=== PATIENT | female | born 1975 | race African-American/Black ===

== ENCOUNTER 2020-03-07 13:04 | Outpatient (CLI) | payer OTHER, SELFPAY ==
--- NOTE | ~2020-03-07 | MM_ITS ---
EXAMINATION: MM screening megha BI w syed HISTORY: Screening mammogram TECHNIQUE: Craniocaudal and mediolateral oblique 3-D tomosynthesis images were obtained and synthetic 2-D images were generated. CAD analysis was submitted and interpreted. COMPARISON: 12/08/2018 bilateral digital screening mammogram BREAST PARENCHYMAL COMPOSITION: The breasts are extremely dense, which lowers the sensitivity of mamm ography. FINDINGS: There is no evidence of suspicious mass, calcification, or architectural distortion to sugg est malignancy in either breast. There has been no suspicious interval change. IMPRESSION: 1. No mammographic evidence of malignancy. 2. Recommend routine screening mammography in one year. BI-RADS Category 1: Negative Reviewed, dictated and finalized at location A.
== END 2020-03-07 13:05 | disposition home or self-care (01) ==
LOC: ANHIMG 13:10
PROVIDERS: PCP Obstetrics & Gynecology; Visit Provider Obstetrics & Gynecology
DX: Z12.31 Encounter for screening mammogram for malignant neoplasm of breast (principal)
CPT/HCPCS: 77063; 77067

== ENCOUNTER 2021-03-28 15:34 | Outpatient (CLI) | payer OTHER, SELFPAY ==
--- NOTE | ~2021-03-28 | MM_ITS ---
EXAMINATION: MM screening megha BI w syed HISTORY: Screening mammogram TECHNIQUE: Craniocaudal and mediolateral oblique 3-D tomosynthesis images were obtained and synthetic 2-D images were generated. CAD analysis was submitted and interpreted. COMPARISON: 03/07/2020, 12/08/2018 bilateral digital screening mammogram examinations BREAST PARENCHYMAL COMPOSITION: The breasts are extremely dense, which lowers the sensitivity of mamm ography. FINDINGS: There is no evidence of suspicious mass, calcification, or architectural distortion to sugg est malignancy in either breast. There has been no suspicious interval change. IMPRESSION: 1. No mammographic evidence of malignancy. 2. Recommend routine screening mammography in one year. BI-RADS Category 1: Negative Reviewed, dictated and finalized at location A.
== END 2021-03-28 15:35 | disposition home or self-care (01) ==
LOC: ANHIMG 15:37
PROVIDERS: PCP Obstetrics & Gynecology; Visit Provider Internal Medicine
DX: Z12.31 Encounter for screening mammogram for malignant neoplasm of breast (principal)
CPT/HCPCS: 77063; 77067

== ENCOUNTER 2022-05-05 15:34 | Outpatient (CLI) | payer OTHER, SELFPAY ==
--- NOTE | ~2022-05-05 | MM_ITS ---
EXAMINATION: MM screening megha BI w syed HISTORY: Screening TECHNIQUE: Craniocaudal and mediolateral oblique 3-D tomosynthesis images were obtained and synthetic 2-D images were generated. CAD analysis was submitted and interpreted. COMPARISON: Comparison to multiple prior studies sequentially, with oldest reviewed study dated 12/08. BREAST PARENCHYMAL COMPOSITION: The breasts are extremely dense, which lowers the sensitivity of mamm ography. FINDINGS: There is no evidence of suspicious mass, calcification, or architectural distortion to sugg est malignancy in either breast. There has been no suspicious interval change. IMPRESSION: 1. No mammographic evidence of malignancy. 2. Recommend routine screening mammography in one year. BI-RADS Category 1: Negative Reviewed, dictated and finalized at location A.
== END 2022-05-05 15:35 | disposition home or self-care (01) ==
LOC: ANHIMG 15:36
PROVIDERS: PCP Obstetrics & Gynecology; Visit Provider Obstetrics & Gynecology
DX: Z12.31 Encounter for screening mammogram for malignant neoplasm of breast (principal)
CPT/HCPCS: 77063; 77067

== ENCOUNTER 2023-09-21 15:32 | Outpatient (CLI) | payer OTHER, SELFPAY ==
--- NOTE | ~2023-09-21 | MM_ITS ---
EXAMINATION: MM screening megha BI w syed HISTORY: Screening mammogram, family history of breast cancer in her mother. TECHNIQUE: Craniocaudal and mediolateral oblique 3-D tomosynthesis images were obtained and synthetic 2-D images were generated. CAD analysis was submitted and interpreted. COMPARISON: 05/05/2022, 03/28/2021, 03/07/2020 BREAST PARENCHYMAL COMPOSITION:The breasts are extremely dense, which lowers the sensitivity of mammo graphy. FINDINGS: No suspicious mass, calcification, or architectural distortion are identified in either sherrie ast to suggest malignancy. There has been no suspicious interval change. IMPRESSION: No mammographic evidence of malignancy. Recommend routine screening mammography in one year. BI-RADS Category 1: Negative Reviewed, dictated and finalized at location . 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
== END 2023-09-21 15:33 | disposition home or self-care (01) ==
LOC: ANHIMG 15:36
PROVIDERS: PCP Obstetrics & Gynecology; Visit Provider Obstetrics & Gynecology
DX: Z12.31 Encounter for screening mammogram for malignant neoplasm of breast (principal)
CPT/HCPCS: 77063; 77067

== ENCOUNTER 2024-09-23 11:43 | Outpatient (CLI) | payer OTHER, SELFPAY ==
--- NOTE | ~2024-09-23 | MM_ITS ---
EXAMINATION: MM screening megha BI w syed HISTORY: Screening TECHNIQUE: Craniocaudal and mediolateral oblique 3-D tomosynthesis images were obtained and synthetic 2-D images were generated. CAD analysis was submitted and interpreted. COMPARISON: Comparison to multiple prior studies sequentially, with oldest reviewed study dated 12/08. BREAST PARENCHYMAL COMPOSITION: Dense: The breasts are extremely dense, which lowers the sensitivity of mammography. FINDINGS: There is no evidence of suspicious mass, calcification, or architectural distortion to sugg est malignancy in either breast. There has been no suspicious interval change. IMPRESSION: 1. No mammographic evidence of malignancy. 2. Recommend routine screening mammography in one year. BI-RADS Category 1: Negative Reviewed, dictated and finalized at location B. 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
== END 2024-09-23 11:44 | disposition home or self-care (01) ==
LOC: CHSIMG 11:44
PROVIDERS: PCP Obstetrics & Gynecology; Visit Provider Obstetrics & Gynecology
DX: Z12.31 Encounter for screening mammogram for malignant neoplasm of breast (principal)
CPT/HCPCS: 77063; 77067

== ENCOUNTER 2025-08-14 11:13 | Outpatient (CLI) | payer OTHER, SELFPAY ==
--- NOTE | ~2025-08-14 | MMUS_ITS ---
EXAMINATION: MM diagnostic megha BI w syed, US breast LT limited HISTORY: Palpable left breast abnormality TECHNIQUE: Additional 3-D tomosynthesis images of the breasts were performed and synthetic 2-D images were generated. CAD analysis was submitted and interpreted. High resolution Limited left breast ultrasound was performed. COMPARISON: Comparison to multiple prior studies sequentially, with oldest reviewed study dated 12/08/2018. BREAST PARENCHYMAL COMPOSITION: Dense: The breasts are extremely dense, which lowers the sensitivity of mammography. FINDINGS: MAMMOGRAPHIC FINDINGS: There are no suspicious masses, calcifications or architectural distortion in either breast to suggest malignancy. ULTRASOUND: Limited left breast ultrasound: At 11:00, 2 cm from the nipple an area of palpable concern there is a bilobed circumscribed parallel oriented hypoechoic mass without posterior features or internal vascularity measuring 11 x 8 x 4 mm, likely benign. At 12:00, 2 cm from the nipple there is a 9 mm cyst. IMPRESSION: 1. Probable benign sonographic mass in the left breast at 11:00, 2 cm from the nipple measuring 11 mm. 2. Recommend 6 month follow-up Limited left breast ultrasound recommended. BI-RADS category 3, probably benign findings. Reviewed, dictated and finalized at location B. IMPRESSION: 1. Probable benign sonographic mass in the left breast at 11:00, 2 cm from the nipple measuring 11 mm. 2. Recommend 6 month follow-up Limited left breast ultrasound recommended. BI-RADS category 3, probably benign findings.
--- OUTSIDE RECORDS SUMMARY | 2025-08-14 12:46 | XMS_ITS | Clinical Summary ---
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 Gender Identity Not on file Sexual Orientation Not on file Plan of Treatment Health Maintenance Due Date Last Done Comments Hepatitis C Virus (HCV) Screening 1977 TdaP Immunization 1977 Hepatitis B Immunization (1 of 3 - 19+ 3-dose series) 1996 Pap Smear 1998 Cervical Cancer Screening (CCS) 2007 HPV/Cotest 2007 Cologuard 2022 Colonoscopy 2022 Colorectal Cancer Screening 2022 Immunochemical Fecal Occult Blood 2022 Influenza Immunization (#1) 06/19/202507/20, 08/09/2019 SARS-COV-2 Immunization ( season) 2025 09/10/2021, 12/10/2020, 11/13/2020 Respiratory Syncytial Virus (RSV) Immunization (Adult) (1 - 1-dose 75+ series) 2052 Human Papillomavirus (HPV) Immunization Aged Out No longer eligible b ased on patient's age to complete this topic Meningococcal Immunization (ACWY) Aged Out No longer eligible b ased on patient's age to complete this topic Pneumococcal Immunization Combined Aged Out No longer eligible b ased on patient's age to complete this topic Rotavirus Immunization Aged Out No lo nger eligible based on patient's age to complete this topic Insurance on file
--- OUTSIDE RECORDS SUMMARY | 2025-08-14 12:46 | XMS_ITS | Clinical Summary ---
Author Organization [facility] Address [address] [place] [address] Care Team Providers Care Flight Communications Officer Name Role Phone Yoana Amos MD Primary Care Provider [phone] Allergies No known active allergies Social History Tobacco Use Types Packs/Day Years Used Date Smoking Tobacco: Never Smokeless Tobacco: Never Alcohol Use Standard Drinks/Week Comments No 0 (1 standard drink = 0.6 oz pur e alcohol) AUDIT-C Answer Date Recorded Frequency of Alcohol Consumption Never 05/22/2019 Average Number of Drinks Not on file 019 Frequency of Binge Drinking Not on file 01/2019 Comments No Sex and Gender Information Value Date Recorded Sex Assigned at Not on file Legal Sex Female 8:44 AM CDT Gender Identity Not on file Sexual Orientation Not on file Last Filed Vital Signs Vital Sign Reading Time Taken Comments Blood Pressure 133/100 05/22/2019 12:00 PM CDT Pulse 71 05/22/2019 12:00 PM CDT Temperature 36.6 C (97.8 F) 05/22/2019 11:30 AM CDT Respiratory Rate 14 05/22/2019 12:00 PM CDT Oxygen Saturation 99% 05/22/2019 11:30 AM CDT Inhaled Oxygen Concentration - - Weight 70.3 kg (155 lb) 05/22/2019 8:48 AM CDT Height 170.2 cm (5' 7) 05/22/2019 8:48 AM CDT Body Mass Index 24.28 05/22/2019 8:48 AM CDT Plan of Treatment Health Maintenance Due Date Last Done Comments Cervical Cancer Screening Pa p Smear (Age 30 to 64) Every 3 Years 1977 Colorectal Cancer Screening Colonoscopy (10 Years) 1977 Annual Physical 1980 Hepatitis C 1995 DTaP, Tdap and Td Vaccines ( 1 - Tdap) 1996 Hepatitis B Vaccines (1 of 3 - 19+ 3-dose series) 1996 Cervical Cancer Screening Pa p with HPV Testing (Age 30 to 64) Every 5 Years 2007 Cervical Cancer Screening with HPV 2007 Mammogram Screening 2017 COVID-19 Vaccine ( - 2024-2 6 season) 2025 Influenza Adult (#1) 2025 Hepatitis A Vaccines Aged Out No long er eligible based on patient's age to complete this topic Meningococcal B Vaccine Aged Out No l onger eligible based on patient's age to complete this topic Meningococcal Vaccine Aged Out No ankita solomon eligible based on patient's age to complete this topic Pneumococcal Vaccine: Pediat rics (0 to 5 Years) and At-Risk Patients (6 to 49 Years) Aged Out No longer eligible b ased on patient's age to complete this topic RSV Immunizations Under 20 Months Aged Out No longer eligible based on patient's age to complete this topic Insurance Care Teams Flight Communications Officer Relationship Specialty Start Date End Date Yoana Amos MD [address] [facility] [address] [id number] PCP - General INTERNAL MEDICINE 8/4/19
--- OUTSIDE RECORDS SUMMARY | 2025-08-14 12:46 | XMS_ITS | Clinical Summary ---
Author Organization [facility] [address] Address [address] [facility] 3rd [place] [address] Phone Care Team Providers Care Adding Machine Mechanic Name Role Phone Yoana Amos MD Primary Care Provider [phone] Allergies No known active allergies Social History Tobacco Use Types Packs/Day Years Used Date Smoking Tobacco: Never Assessed Smokeless Tobacco: Never Alcohol Use Standard Drinks/Week Comments No 0 (1 standard drink = 0.6 oz pur e alcohol) Comments Yes Sex and Gender Information Value Date Recorded Sex Assigned at Not on file 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 Gender Identity Not on file Sexual Orientation Not on file Occupation Industry Job Start Date Job End Date Not on file Not on file Not on file Not on file Plan of Treatment Health Maintenance Due Date Last Done Comments DTAP/TDAP/TD VACCINES (1 - Tdap) 1996 HEPATITIS B VACCINES (1 of 3 - 19+ 3-dose series) 03/1996 HPV/Cotest (21-29) 1998 CERVICAL CANCER SCREENING 2007 HPV/Cotest (30-65) 2007 PAP SMEAR 2007 BREAST CANCER SCREENING 2017 COLORECTAL SCREENING 2022 Colorectal Cancer Screening 2022 FIT-DNA Q 3 years 2022 FIT/FOBT Q 1 year 2022 Flex Sig/CT Colonography Q 5 years 2022 INFLUENZA VACCINE (#1) 2025 RSV VACCINE (60+ or ) (1 - 1-dose 75+ series) 2052 Insurance [employer] [facility] OPEN ACCESS Care Teams Adding Machine Mechanic Relationship Specialty Start Date End Date Yoana Amos MD [address] [facility] [address] [place] [address] [place] [phone] PCP - General Internal Medicine 01/07/12
--- OUTSIDE RECORDS SUMMARY | 2025-08-14 12:46 | XMS_ITS | Encounter Summary ---
Author Organization [facility] Care Team Providers Care Open Hearth Stockyard Supervisor Name Role Phone Yoana Amos MD Primary Care Provider [phone] Yoana Amos MD Primary Care Provider [phone] Yoana Amos MD Unavailable [phone] Santiago Moe MD Unavailable [phone] Rao Booth MD Unavailable [phone] Lyudmila Crowder MD Unavailable [phone] Zack Hebert OD Unavailable [phone] Encounter Details Date Type Department Care Team (Latest Contact Info) Description 08/10/2018 Orders Only [facility] CLINCONV ProviderJose Manuel MD [address] [place] [id number] Social History Tobacco Use Types Packs/Day Years Used Date Smoking Tobacco: Never Comments Unknown Sex and Gender Information Value Date Recorded Sex Assigned at Not on file 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 us Historical Provider Final Res ult documented in this encounter Visit Diagnoses Not on filedocumented in this encounter Care Teams Open Hearth Stockyard Supervisor Relationship Specialty Start Date End Date Yoana Amos MD [facility] [id number] PCP - General 04/23/19 11/27/19 Yoana Amos MD [facility] [address] [id number] PCP - General Internal Medicine 11/28/19 Yoana Amos MD [facility] [address] [id number] 11/28/19 Santiago Moe MD [address] [place] [id number] Referring Physician Obstetrics and Gynecology 05/11/19 Rao Booth MD [address] [address] Consulting Physician Colon and Rectal Surgery 10/08/20 Lyudmila Crowder MD [address] [place] [id number] Referring Physician Cardiology 11/19/21 Zack Hebert OD [address] [facility] [facility] [address] [place] [address] Optometry 12/26/21 documented as of this encounter
--- OUTSIDE RECORDS SUMMARY | 2025-08-14 12:46 | XMS_ITS | Clinical Summary ---
Author Organization [facility] Address [address] [place] [address] Care Team Providers Care Aperture Mask Etcher Name Role Phone Yoana Amos MD Primary Care Provider Yoana Amos MD Unavailable Santiago Moe MD Unavailable [phone] Rao Booth MD Unavailable [phone] Lyudmila Crowder MD Unavailable Zack Hebert OD Unavailable [phone] Allergies Active Allergy Reactions Criticality Noted Date Comments Nifedipine Headache Low 05/10/2019 Medications fluticasone propionate (FLONASE) 50 mcg/actuation nasal spray Administer 2 sprays into each nostril daily 16 g 5 2 Active Additional Information Patient not taking.Reported on 08/08/2025 metoprolol XL (TOPROL-XL) 50 mg extended release tablet TAKE 1 TABLET BY MOUTH EVERY DAY 30 tablet 5 5 Active lisinopriL (PRINIVIL,ZEST RIL) 20 mg tabletIndicati ons:Hypertensi on, essential TAKE 1 TABLET BY MOUTH EVERY DAY. DUE FOR ANNUAL VISIT!! 30 tablet 3 5 Active hydroCHLOROthi azide 12.5 mg tabletIndicati ons:Hypertensi on, essential Take 1 tablet/capsule (12.5 mg total) by mouth daily Take half tab by mouth daily 15 tablet 5 5 Active ferrous sulfate 325 mg (65 mg of elemental iron) tabletIndicati ons:Iron Deficiency Anemia Take 1 tablet (325 mg total) by mouth every other day 45 tablet 3 5 08/10/20 26 Active ferrous sulfate 325 mg (65 mg of elemental iron) tabletIndicati ons:Iron Deficiency Anemia Take 1 tablet (325 mg total) by mouth every other day 45 tablet 3 5 08/10/20 25 Discontin ued(Reord er) Active Problems Problem Noted Date Diagnosed Date Iron deficiency 08/09/2025 Tension-type headache, not intractable Assessment & Plan (02/06/2025 5:25 PM CDT): New and worsening Under a lot of stress Avoid headware can cause muscle tension type headaches Do neck exercises Cont heating pad Cont with chiro Address S[place] tension type with chiro Try aleve for S[place] if tylenol does not help Neuritis of foot, right 12/31/2022 Assessment & Plan (12/31/2022 5:42 PM CDT): New problem Patient reassured Patient advised not to sit on her foot while she is working on the computer to change up those habits. The fact that the numbness is improving indicates that this is just a superficial nerve that is being compressed. This should resolve over time. Vasovagal syncope 12/31/2022 Overview (12/31/2022): Evaluated in the emergency room. Evaluated by Cardiology echo performed. Normal echo. Hypertension on lisinopril, hydrochlorothiazide and metoprolol. Assessment & Plan (08/31/2023 10:33 AM DRESSMAKER HELPER): No recurrence. Assessment & Plan (12/31/2022 5:42 PM CDT): Recent problem here for follow-up Reassuring that the patient was seen by Cardiology and all studies were negative. It is possible that the patient was a bit dehydrated she would not eaten much that day she stated. Also we need to keep in mind that she is on hydrochlorothiazide which can also cause more dehydration. Patient warned that in the summer months with heat and sweating that she might have problems with the hydrochlorothiazide and if her blood pressure tends to be on the low side or if she gets lightheaded with changes in position perhaps this is the medication we need to discontinue. Patient reassured that the echo was reviewed and was all normal. Also reassured that she did not have any signs of left ventricular hypertrophy or valvular disease. Patient advised to hydrate well and to monitor blood pressure. Report if it runs low under 90/60 on a constant basis. Hematoma of intraoral surface of lip 12/31/2022 Assessment & Plan (12/31/2022 5:46 PM CDT): Patient again reassured, this appears to be healing as expected. Because of the significant trauma she sustained to the lower lip it is still healing and scarring. Patient advised to use warm compresses and massage the lower lip this might help accelerate the healing from the hematoma that has developed under her skin. There is no disfiguration of her lower lip cosmetically. Muscle spasm of back 12/18/2020 Assessment & Plan (12/18/2020 3:53 PM DRESSMAKER HELPER): Do the physical therapy Back exercises, and stretching Call if better Low vitamin B12 level 12/18/2020 Assessment & Plan (12/26/2021 4:51 PM DRESSMAKER HELPER): Will continue to monitor b12 levels Assessment & Plan (12/18/2020 6:50 PM DRESSMAKER HELPER): Due for level check was low 2 yrs ago If low will need supplementation. If low would explain her fatigue. Encounter for screening colonoscopy 11/12/2020 Overview (11/12/2020): Added automatically from request for surgery [id number] Gastroesophageal reflux disease without esophagi tis 11/12/2020 Overview (02/19/2021): Added automatically from request for surgery [id number] EGD/Colonoscopy 01/30/2021 Dr Rao Booth Diagnosis: A: Stomach, antrum, endoscopic biopsy - No histopathologic abnormality - No acute or chronic gastritis - No Helicobacter by H&E sections - No evidence of intestinal metaplasia, dysplasia, or malignancy B: Stomach, lesser curvature polyp, endoscopic biopsy - Fundic gland polyp - No evidence of intestinal metaplasia, adenoma, dysplasia, or malignancy C: Large intestine, sigmoid colon, endoscopic biopsy - Hyperplastic polyp - No evidence of adenoma or malignancy Assessment & Plan (12/26/2021 4:51 PM DRESSMAKER HELPER): No issues at this time, stable 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 Assessment & Plan (06/13/2020 3:58 PM CDT): MRI of Thymus gland (abn CT scan chest 09/2019) Dyspepsia 02/16/2020 Assessment & Plan (02/16/2020 11:53 AM CDT): Cont omeprazole therapy Report if develops black tarry like stool If symptom worsen or persist call Might need gb ultrasound if sx persist Premature atrial contraction 11/25/2019 Overview (11/19/2021): 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 Baseline Echo Comments: Normal LV+RV morphology and function - No wall abnormalities. Doppler/CF Comments: No significant MR, AR, TR, or IN recorded. Trace IN, Trace TR. Baseline HR: 88 Baseline BP: 148/88 EKG 09/30/19 NSR, SVTs, normal ST segments Assessment & Plan (09/01/2024 10:46 AM DRESSMAKER HELPER): Stable and not bothersome on BB. No additional recs at this time. Assessment & Plan (08/31/2023 10:34 AM DRESSMAKER HELPER): Stable and not bothersome on BB. No additional recs at this time. Assessment & Plan (12/31/2022 4:49 PM CDT): Stable on rx metoprolol Cont same regimen stable Assessment & Plan (12/26/2021 4:48 PM DRESSMAKER HELPER): Palpitations are controlled on metoprolol BB Avoid cardiac stimulants Cont under care of Dr Crowder, [employer] company driver Assessment & Plan (06/13/2020 4:04 PM CDT): Dr Crowder monitors Cont the metoprolol nightly at 50mg Stable R/o irritation of heart sac from thymus gland, seen on ct chest 09/2019 Assessment & Plan (02/16/2020 12:06 PM CDT): Dr Crowder monitors Patient encouraged to take the metoprolol nightly at 50mg and not to take on a p.r.n. basis. I explained to the patient in great detail the importance of keeping heart rate and blood pressure controlled. This is important that she take the medication daily and not p.r.n.. Well metoprolol is mainly for heart rate control and palpitations is also helping us control her blood pressure. Assessment & Plan (11/25/2019 4:25 PM DRESSMAKER HELPER): EKG today reviewed, c/w frequent Premature atrial contractions. Compared to ekg in 09/30/2019, PACs were present then, just sl more on this EKG. Anxiety can induce palpitations, but I dont see that she is anxious. Check magnesium level and bmp Add low dose toprol xl, take in evenings to reduce palpitations and extra beats Refer to cardiology to eval and treat for palpitations, frequent PACs. 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 Assessment & Plan (08/17/2019 6:49 PM CDT): Likely sec to MVP and anxiety. Ff low caffeine diet 24 hr holter monitor Will see pending results which type of cdl company driver to refer to Annual physical exam 05/11/2019 Assessment & Plan (02/06/2025 9:58 AM CDT): Reviewed previous labs and diagnostic test results. Chronic medical problems evaluated and management plans discussed with the patient. Prescription medications, supplements, vitamins and immunizations reviewed. Wear seatbelts. Use sunscreen. Discussed healthy diet and disease prevention. Recommend moving towards a plant based diet. Discussed importance of scheduling recommended screening tests. Discussed importance of regular physical examinations for health maintenance. Assessment & Plan (12/31/2022 4:58 PM CDT): Reviewed previous labs and diagnostic test results. Chronic medical problems evaluated and management plans discussed with the patient. Prescription medications, supplements, vitamins and immunizations reviewed. Wear seatbelts. Use sunscreen. Discussed healthy diet and disease prevention. Recommend moving towards a plant based diet. Discussed importance of scheduling recommended screening tests. Discussed importance of regular physical examinations for health maintenance. Assessment & Plan (12/26/2021 4:46 PM DRESSMAKER HELPER): Wear sunscreen with SPF over 50 while outdoors. Wear sun protective head wear and clothing if planning to stay outdoors exposed to the direct sunlight for extended hours. Wear seatbelts while in a vehicle. Do not TEXT and DRIVE Do not DRINK and DRIVE. Drink responsibly Follow a heart healthy diet and lifestyle. Consume 5-7 servings of fruits and vegetables a day.. Such as the Mediterranean Diet. Maintain/attain normal body weight. Exercise regularly, minimum 20 mins 3 days a week to reduce cardiovascular healthy. Maintain good sleep schedule and sleep habits I recommend that all patients follow a diet that is high in fruits and vegetables and low in processed foods such as sugar and foods that are made with white flour. I recommend using beneficial fats such as olive oil, nuts, seeds and berries and avoiding saturated animal fats. Please stay physically active to the extent that you are physically able to. Assessment & Plan (06/13/2020 3:34 PM CDT): Wear sunscreen with SPF over 50 while outdoors. Wear sun protective head wear and clothing if planning to stay outdoors exposed to the direct sunlight for extended hours. Wear seatbelts while in a vehicle. Do not TEXT and DRIVE Do not DRINK and DRIVE. Drink responsibly Follow a heart healthy diet and lifestyle. Consume 5-7 servings of fruits and vegetables a day.. Such as the Mediterranean Diet. Maintain/attain normal body weight. Exercise regularly, minimum 20 mins 3 days a week to reduce cardiovascular healthy. Maintain good sleep schedule and sleep habits I recommend that all patients follow a diet that is high in fruits and vegetables and low in processed foods such as sugar and foods that are made with white flour. I recommend using beneficial fats such as olive oil, nuts, seeds and berries and avoiding saturated animal fats. Please stay physically active to the extent that you are physically able to. Test results: if you have not received communication about test results within 7 days of the test being performed, please contact the office. I strongly encourage [employer] sign ups. It can facilitate communication flow. Please contact the office for instructions on signing up. Assessment & Plan (05/11/2019 2:49 PM CDT): Wear sunscreen while outdoors. Wear seatbelts while in a vehicle. Do not text and drive. Follow a heart healthy diet and lifestyle. Consume 5-7 servings of fruits and vegetables a day. Maintain/attain normal body weight. Maintain good sleep schedule and sleep habits. Hypertension, essential 09/29/2016 Overview (12/31/2022): age onset 37Y, famhx of HTN in mother and sister Lisinopril and hctz ECHO 12/04/2022 normal no LVH, no valvular disease Assessment & Plan (02/06/2025 5:26 PM CDT): Blood pressure tends to be higher at the visit when retaking it improved Continue to monitor blood pressure at home and read port if elevated Continue lisinopril 20 mg daily, HCTZ 12.5 mg daily, Metoprolol 50 mg xl daily. Continued exercise on a regular basis Assessment & Plan (09/01/2024 10:46 AM DRESSMAKER HELPER): SBP stable in clinic, no additional recs. Continue lisinopril 20 mg daily, HCTZ 12.5 mg daily, Metoprolol 50 mg xl daily. Assessment & Plan (08/31/2023 10:36 AM DRESSMAKER HELPER): SBP stable in clinic, no additional recs. Continue lisinopril 20 mg daily, HCTZ 12.5 mg daily, Metoprolol 50 mg xl daily. Assessment & Plan (12/31/2022 4:44 PM CDT): BP controlled Follow low sodium DASH Diet. Exercise regularly for CV health and weight loss. Achieve or Maintain normal BMI/Weight. Take medications as prescribed. Report if having problems with the medication or if develops Chest pains. Monitor BP occly and record. Report if BP consistently over 160/90 or under 90/60 and dizzy and LH. Continue Rx medication. BP is controlled and stable. Watch in the summertime nikolay when weather is hot, might need to get away from the diuretic Assessment & Plan (12/26/2021 4:46 PM DRESSMAKER HELPER): bp controlled Cont same regimen Low sodium diet Assessment & Plan (12/18/2020 3:52 PM DRESSMAKER HELPER): Follow low sodium DASH Diet. Exercise regularly for CV health and weight loss. Achieve or Maintain normal BMI/Weight. Take medications as prescribed. Report if having problems with the medication or if develops Chest pains. Monitor BP occly and record. Report if BP consistently over 160/90 or under 90/60 and dizzy and LH. BP is controlled and stable. Assessment & Plan (06/13/2020 4:05 PM CDT): Stable on low dose hctz and lisinopril therapy. Ff low sodium diet Cont to diet and exercise regularly Assessment & Plan (02/16/2020 12:09 PM CDT): Ff DASH diet Patient appears to be Dyazide sensitive which is good for her blood pressure. The 25 mg dosage seems to be too strong. Patient encouraged to treat try it at 12.5 mg a day. Patient also encouraged to remain on Toprol XL 50mg nightly and lisinopril 20mg in a.m. Diastolic BP remains elevated off the Dyazide. Restart Dyazide at lower dosage. My hope is to get blood pressure controlled on lisinopril and hydrochlorothiazide any ultimately give her 1 combo pill. Resume the hctz but at 12.5 mg daily and monitor. Call next week with some bp readings. If the blood pressure runs too low after resuming 12.5 mg of hydrochlorothiazide I would reduce the lisinopril dosage to 10 mg daily Assessment & Plan (11/25/2019 3:30 PM DRESSMAKER HELPER): Follow low sodium DASH Diet. Exercise regularly for CV health and weight loss. Achieve or Maintain normal BMI/Weight. Take medications as prescribed. Report if having porblems with the medication or if develops Chest pains. Monitor BP occly and record. Report if BP consistently over 160/90 or under 90/60 and dizzy and LH. BP is controlled and stable. Assessment & Plan (08/17/2019 6:48 PM CDT): bp is better, Headaches are better Cont current BP medication at same dose Do not take the hydrochlorothiazide, the patient has discontinued this at any rate her blood pressure is controlled on just the lisinopril medication. Assessment & Plan (05/11/2019 2:53 PM CDT): BP Not optimally controlled. Cont lisinopril, add hctz 25mg daily. 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 Dr. Batista in 1 year, ECHO same day to establish care. Assessment & Plan (08/31/2023 10:36 AM DRESSMAKER HELPER): No MR on ECHO in December 2022. Assessment & Plan (12/31/2022 5:42 PM CDT): Normal echo 12/04/2022 No MVP seen on recent echo December 04, 2022. Due to palpitations continue on prescription metoprolol patient reassured of the absence of mitral valve prolapse on current echo Assessment & Plan (12/26/2021 4:49 PM DRESSMAKER HELPER): Metoprolol therapy is low dose Dr Crowder cardio managing Assessment & Plan (12/18/2020 3:54 PM DRESSMAKER HELPER): Stable on metoprolol therapy Cont same Assessment & Plan (08/17/2019 6:49 PM CDT): Can get aggravated by the anxiety. Will check an echo Doppler to make re- evaluate her mitral valve status. Echo doppler US Assessment & Plan (05/11/2019 6:44 PM CDT): Stable. Patient to inform us if she gets chest pains or palpitations frequently. She might benefit from a beta-josefina. Resolved Problems Problem Noted Date Diagnosed Date Resolved Date Impacted cerumen of right ear 01/19/2024 02/06/2025 Rash 04/23/2023 02/06/2025 Assessment & Plan (04/23/2023 1:34 PM CDT): Vesicular pruritic rash unilateral involvement (left hand) on and off over the course of 2 months. Images uploaded to patient media Will treat for possible shingles Valacyclovir 1gram PO three times daily x 7 days ordered during this visit. Keep the rash covered if able to, and wash their hands often to prevent the spread of virus to others. Avoid contact with women who have never had chickenpox or the varicella vaccine, premature infants, and immunocompromised individuals. Discussed the expected course of resolution of pain and the rash. May call or RTC with any questions or concerns. PCP for persisting symptoms Rash 04/23/2023 04/23/2023 Assessment & Plan (04/23/2023 1:33 PM CDT): Vesicular pruritic rash unilateral involvement (left hand) on and off over the course of 2 months. Images uploaded to patient media Will treat for possible shingles Valacyclovir 1gram PO three times daily x 7 days ordered during this visit. Keep the rash covered if able to, and wash their hands often to prevent the spread of virus to others. Avoid contact with women who have never had chickenpox or the varicella vaccine, premature infants, and immunocompromised individuals. Discussed the expected course of resolution of pain and the rash. May call or RTC with any questions or concerns. PCP for persisting symptoms Rash 04/23/2023 04/23/2023 Lip lesion 12/08/2022 12/31/2022 Assessment & Plan (12/08/2022 12:14 PM DRESSMAKER HELPER): Will start patient on doxycycline 100 mg twice daily for 7 days for antimicrobial coverage Cool compresses or ice applied to the area for swelling and pain Tylenol or ibuprofen as needed as directed on package for pain Continue Vaseline or Neosporin on the lesion Follow up with PCP if worsening symptoms including increased redness or swelling Snoring 02/07/2021 12/31/2022 Assessment & Plan (02/07/2021 2:36 PM CDT): The patient did snore when she was about 8 years ago and had a recent nocturnal gasping episode. I have recommended proceeding with a nocturnal polysomnogram with a split night protocol if necessary and no MSLT. She will follow-up here if the study is completed. Heartburn symptom 12/12/2020 01/30/2021 Overview (12/12/2020): Added automatically from request for surgery [id number] Melena 11/12/2020 12/31/2022 Overview (12/03/2020): Added automatically from request for surgery [id number] Blood in stool 10/08/2020 12/31/2022 Reactive depression (situational) 05/11/2019 12/26/2021 Overview (05/11/2019): Recent of spouse 04/2019 Assessment & Plan (05/11/2019 6:44 PM CDT): Sad, not depressed. Grieving. Refer to [facility] for grief counselling. Continue coping mechanisms continue to work. Patient has good support from her family. She does not appear to be depressed she is just sad. Hyperlipidemia 09/29/2016 05/11/2019 Encounters Date Type Department Care Team Description 08/08/2025 10:00 AM CDT Lab [facility] Office Building [address] [place] [id number] Hemoglobin low; Hypertension, essential 08/08/2025 9:30 AM CDT Office Visit [facility] [address] [place] [phone] Qing Holley NP Hypertension, essential (Primary Dx); Need for vaccination; Acute non intractable tension-type headache; Iron deficiency 08/08/2025 Results Follow-Up [facility] [address] [place] [phone] Yoana Amos MD Iron profile w/ IBC, CBC with auto differential, Differential, auto 05/17/2025 Telephone [facility] [address] [place] [phone] Yoana Amos MD 05/15/2025 Results Follow-Up [facility] [address] [place] [phone] Yoana Amos MD CBC with auto differential, Comprehensive metabolic panel, URINALYSIS,COMPLETE(R EFL), Additional followed-up results: 4 from Last 3 Months Immunizations Immunization Administration Dates Next Due COVID-19 mRNA ([employer]) 0.3 m L (30 mcg) vaccine (12 years and up) 11/06/2024 HPV9 06/25/2022 Influenza, Quadrivalent, Spl it, Pediatric, Preservative Free, Intramuscular 08/24/2021 Influenza, Quadrivalent, Spl it, Preservative Free, Intramuscular 08/06/2023,08/12/2022,08/16/2020,08/16 Influenza, Trivalent, Cell Culture-based MDCK, Preservative Free, Antibiotic Free, Intramuscular 11/06/2024 Influenza, Trivalent, IM (MDV) 07/19/2021 Influenza, Trivalent, Preser vative Free, Intramuscular 08/08/2025 Influenza, Unspecified 08/09/2019,08/09/2019 Pfizer SARS-CoV-2 Monovalent Vaccination (12+ Yrs) PURPLE 09/10/2021,12/10/2020,11/13/2020 Tdap 12/31/2022,05/26/2012 Surgical History Surgery Date Site/Laterality Comments SECTION TONSILLECTOMY BREAST BIOPSY Right Medical History Medical History Date Comments Mitral valve prolapse Hyperlipidemia 09/29/2016 Hypertension 09/29/2016 age onset 37 Palpitations Hx PACs Reactive depression (situational) 05/11/2019 Recent of spouse 04/2019 Family History Medical History Relation Name Comments No Known Problems Brother No Known Problems Father Breast cancer Mother Colon polyps Mother Hypertension Mother Hypertension Sister heart palpitations Sister Relation Name Status Comments Brother Alive Father Alive Mother Alive Sister Alive Social History Tobacco Use Types Packs/Day Years Used Date Smoking Tobacco: Never Smokeless Tobacco: Never Tobacco Cessation:Counseling Given: Not Answered Alcohol Use Standard Drinks/Week Comments Not Currently 0 (1 standard drink = 0.6 oz pur e alcohol) PHQ-2 Answer Date Recorded PHQ-2 Total Score (If total score is 3 or more points, staff should administer the PHQ-9) 0 08/08/2025 PHQ-9 Answer Date Recorded PHQ-9 Total Score 0 02/06/2025 AUDIT-C Answer Date Recorded Q1: How often do you have a drink containing alcohol? Never 08/08/2025 Q2: How many drinks containi ng alcohol do you have on a typical day when you are drinking? Patient does not drink Q3: How often do you have si x or more drinks on one occasion? 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 Not on file Not on file Not on file Obstetrics History Last Filed Vital Signs Vital Sign Reading Time Taken Comments Blood Pressure 126/72 08/08/2025 9:22 AM CDT Pulse 61 08/08/2025 9:22 AM CDT Temperature 36.4 C (97.6 F) 08/08/2025 9:22 AM CDT Respiratory Rate 16 08/08/2025 9:22 AM CDT Oxygen Saturation 99% 08/08/2025 9:22 AM CDT Inhaled Oxygen Concentration - - Weight 62.6 kg (138 lb) 08/08/2025 9:22 AM CDT Height 167.6 cm (5' 6) 08/08/2025 9:22 AM CDT Body Mass Index 22.27 08/08/2025 9:22 AM CDT Plan of Treatment Health Maintenance Due Date Last Done Comments Hepatitis B Screening 1995 Cervical Cancer Screening 11/11/2017 11/11/2016 Breast Cancer Screening-Mammogram 05/05/2023 05/05/2022, 03/28/2021, 03/07/2020, Additional history exists Regular Well Visit/Exam 18-64 02/06/2026 02/06/2025, 12/31/2022, 12/26/2021, Additional history exists Depression Screening 08/08/2026 08/08/2025, 02/06/2025, 02/06/2025, Additional history exists Colon Cancer Screening-Colonoscopy 01/30/2031 01/30/2021 DTaP/Tdap/Td Vaccine (3 - Td or Tdap) 12/31/2032 12/31/2022, 05/26/2012 Hepatitis C Screening Completed 12/19/2020 Covid-19 Vaccine Completed 11/06/2024, , 12/10/2020, Additional history exists Influenza Vaccine Completed 08/08/2025, , 08/06/2023, Additional history exists Pneumococcal vaccine <65 Aged Out No longer eligible based on patient's age to complete this topic Procedures Procedure Name Priority Date/Time Associated Diagnosis Comments DIFFERENTIAL AUTO Routine 08/08/2025 10: 17 AM CDT Hemoglobin low Hypertension, essential CBC WITH AUTO DIFFERENTIAL Routine 08/08/2025 10:17 AM CDT Hemoglobin low Hypertension, essential IRON PROFILE W/ IBC Routine 08/08/2025 1 0:17 AM CDT Hemoglobin low Hypertension, essential HM MAMMOGRAPHY Routine 05/05/2022 COLONOSCOPY 01/30/2021 12:32 PM CDT HEPATITIS C ANTIBODY Routine 12/19/2020 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 Encounter for hepatitis C screening test for low risk patient PAP SMEAR WITH HPV Routine 11/11/2016 from Last 3 Months or Most Recently Relevant to Health Maintenance Results * Differential, auto (08/08/2025 10:17 AM CDT) Neutrophil abs 1.99 1.50 - 6.50 K/cumm Comment:Testing performed by : [address] [address] Imm gran abs 0.01 0.00 - 0.10 K/cumm MIKE Comment:Testing performed by : [address] [address] Lymphocyte abs 2.37 0.80 - 3.30 K/cumm MIKE Comment:Testing performed by : [address] [address] Monocyte abs 0.37 0.20 - 0.80 K/cumm MIKE Comment:Testing performed by : [address] [address] Eosinophil abs 0.11 0.00 - 0.50 K/cumm [facility] Comment:Testing performed by : [address] [address] Basophil abs 0.08 0.00 - 0.10 K/cumm MIKE Comment:Testing performed by : [address] [address] Neutrophil pct 40.4 % [facility] Comment: Interpretive Data Percent cell count reference ranges are not reported, since discordance with absolute values may lead to misinterpretation of CBC data. Current Interpretive Data was last revised on 2018. Testing performed by: [address] [address] Imm gran pct 0.2 % [facility] Comment: Interpretive Data Percent cell count reference ranges are not reported, since discordance with absolute values may lead to misinterpretation of CBC data. Current Interpretive Data was last revised on 2018. Testing performed by: [address] [address] Lymphocyte pct 48.1 % [facility] Comment: Interpretive Data Percent cell count reference ranges are not reported, since discordance with absolute values may lead to misinterpretation of CBC data. Current Interpretive Data was last revised on 2018. Testing performed by: [address] [address] Monocyte pct 7.5 % [facility] Comment: Interpretive Data Percent cell count reference ranges are not reported, since discordance with absolute values may lead to misinterpretation of CBC data. Current Interpretive Data was last revised on 2018. Testing performed by: [address] [address] Eosinophil pct 2.2 % [facility] Comment: Interpretive Data Percent cell count reference ranges are not reported, since discordance with absolute values may lead to misinterpretation of CBC data. Current Interpretive Data was last revised on 2018. Testing performed by: [address] [address] Basophil pct 1.6 % [facility] Comment: Interpretive Data Percent cell count reference ranges are not reported, since discordance with absolute values may lead to misinterpretation of CBC data. Current Interpretive Data was last revised on 2018. Testing performed by: [address] [address] Blood 08/08/2025 10:1 7 AM CDT 08/08/2025 11:43 AM CDT Yoana Amos MD LAB BLOOD ORDERABLES Final R esult Performing Organization Address [facility] Co de Phone Number MIKE [address] [facility] [place] [address] * (ABNORMAL) Iron profile w/ IBC (08/08/2025 10:17 AM CDT) Iron 32(L) 35 - 145 mcg/dL Comment:Testing performed by : [address] [address] TIBC 365 250 - 400 mcg/dL MIKE Comment:Testing performed by : [address] [address] Transferrin saturation 9(L) 20 - 50 % MIKE Comment:Testing performed by : [address] [address] Blood 08/08/2025 10:1 7 AM CDT 08/08/2025 11:43 AM CDT Yoana Amos MD LAB BLOOD ORDERABLES Final R esult Performing Organization Address City/[facility] Co de Phone Number MIKE [address] [facility] [place] [address] * (ABNORMAL) CBC with auto differential (08/08/2025 10:17 AM CDT) WBC 4.93 3.80 - 9.90 K/cumm Comment:Testing performed by : [address] [address] Hgb 12.2 11.9 - 15.5 g/dL MIKE Comment:Testing performed by : [address] [address] Hct 35.9 35.6 - 45.5 % MIKE Comment:Testing performed by : [address], [address] Plt 257 150 - 400 K/cumm MIKE Comment:Testing performed by : [address] [address] MPV 9.9 9.1 - 12.3 fL MIKE Comment:Testing performed by : [address], [address] RBC 4.68 3.90 - 5.20 M/cumm MIKE Comment:Testing performed by : [address] [address] MCV 76.7(L) 81.3 - 96.4 fL MIKE Comment:Testing performed by : [address] [address] MCH 26.1(L) 27.1 - 33.3 pg MIKE Comment:Testing performed by : [address] [address] MCHC 34.0 32.3 - 35.7 g/dL MIKE Comment:Testing performed by : [address], [address] RDW CV 16.0(H) 11.1 - 14.9 % MIKE Comment:Testing performed by : [address], [address] RDW SD 43.9 35.7 - 48.1 fL MIKE Comment:Testing performed by : [address], [address] NRBC abs 0.00 0.00 - 0.01 K/cumm MIKE Comment:Testing performed by : [address], [address] Blood 08/08/2025 10:1 7 AM CDT 08/08/2025 11:43 AM CDT us Yoana Amos MD LAB BLOOD ORDERABLES Final R esult MIKE [address] [facility] Department [place] [address] * HM MAMMOGRAPHY (05/05/2022) Mammography Normal us Historical Provider HEALTH MAINTENANCE Final Result * COLONOSCOPY (01/30/2021 12:32 PM CDT) Anatomical Region Laterality Modality Other Narrative Procedure Note Rao Booth MD - 01/30/2021 12:32 PM CDT ENDOSCOPY LAB Patient Name: Atelsya Flood Procedure Date: 01/30/2021 12:32 PM Date of : 1975 Admit Type: Outpatient Age: 45 Gender: Female Attending MD: Rao Booth M.D. Room: [facility] ENDOSCOPY ROOM 02 Note Status: Finalized Procedure: Colonoscopy Indications: This is the patient's first colonoscopy,Hematochezia, Family history of colonic polyps in a first-degree relative Providers: Rao Booth M.D. Referring MD: Santiago Moe M.D. Medicines: Monitored Anesthesia Care Complications: No immediate complications. Estimated Blood Loss: Estimated blood loss: none. Procedure: Pre-Anesthesia Assessment: - Immediately prior to administration ofmedications, the patient was re-assessed for adequacy to receive sedatives. - Sedation was administered by an anesthesia professional. The sedation level attained wasmoderate. - The heart rate, respiratory rate, oxygen saturations, blood pressure, adequacy of pulmonary ventilation, and response to care were monitored throughout the procedure. - The physical status of the patient wasre-assessed after the procedure. The benefits, risks and alternatives of theprocedure and sedation were discussed and informed consentwas obtained. All questions were answered. Please referto the signed informed consent document in the medical record. The scope was passed under direct vision.The [id number] was introduced through the anusand advanced to the terminal ileum, with identificationof the appendiceal orifice and IC valve. Thecolonoscopy was somewhat difficult due to significant loopingand a tortuous colon. Successful completion of the procedure was aided by straightening and shortening the scope to obtain bowel loop reduction andapplying abdominal pressure. The patient tolerated the procedure well. The quality of the bowelpreparation was good. The quality of the bowel preparation was evaluated using the BBPS (Lawrence Bowel Preparation Scale) with scores of: Right Colon = 2 (minoramount of residual staining, small fragments of stooland/or opaque liquid, but mucosa seen well), TransverseColon = 3 (entire mucosa seen well with no residual staining, small fragments of stool or opaqueliquid) and Left Colon = 3 (entire mucosa seen well with no residual staining, small fragments of stool oropaque liquid). The total BBPS score equals 8. Bowel prepwas administered using a split dose. Findings: Hemorrhoids were found on perianal exam. The digital rectal exam was normal. Pertinent negatives include no palpable rectal lesions. The sigmoid colon was moderately tortuous. Advancing the scoperequired straightening and shortening the scope to obtain bowel loopreduction. The terminal ileum appeared normal. A 2 mm polyp was found in the sigmoid colon. The polyp was sessile.The polyp was removed with a jumbo cold forceps. Resection and retrieval were complete. Non-bleeding external and internal hemorrhoids were found during retroflexion and during endoscopy. The hemorrhoids were moderate. The exam was otherwise without abnormality on direct and retroflexion views. Impression: - Hemorrhoids found on perianal exam. - Tortuous colon. - The examined portion of the ileum was normal. - One 2 mm polyp in the sigmoid colon, removed witha jumbo cold forceps. Resected and retrieved. - Non-bleeding external and internal hemorrhoids. - The examination was otherwise normal on directand retroflexion views. Recommendation: - Discharge patient to home. - Advance diet as tolerated and high fiber diet indefinitely. - Continue present medications. - Use fiber, for example Citrucel, Fibercon, Konsylor Metamucil. - Await pathology results. - Repeat colonoscopy in 5-10 years for surveillance based on pathology results. - For polyp and cancer prevention: Consider daily aspirin if OK with primary care provider; Calcium, folate, and vitamin D; healthy diet low inprocessed and red meats, exercise regularly, maintain healthy weight. See [facility] website for moreprevention tips. - Contact Information: During normal business hours (8AM-4PM) - Please call the Nurse Coordinator: [phone]. call center agent physician after hours, weekends andholidays: [phone] and asked for the [place]-Rectalphysician production machine shop supervisor. - Consider hemorrhoidectomy. - A polyp or polyps were removed during your colonoscopy today. After the pathology result ofthe polyp(s) is reviewed, the doctor who performedyour colonoscopy will recommend follow-up colonoscopy to you based on current guidelines by gastroenterology societies: - If only small hyperplastic polyps from the rectumor sigmoid were removed, repeat the colonoscopy in 10 years. - If 1 or 2 polyps less than 1 cm in size are adenomas, repeat the colonoscopy in 5 years. - If 3 or more polyps are adenomas, repeat the colonoscopy in 3 years. - If there are 10 or more adenomas, repeat the colonoscopy in 1 year. - If any polyp is 10 mm or greater in size, has villous histology or high grade dysplasia,repeat the colonoscopy in 3 years. - If a polyp greater than 2 cm was removed with a piecemeal technique, repeat the colonoscopy in 6 months to be certain that there is no residualpolyp. - Sessile serrated polyps are treated like adenomas for surveillance purposes. Attending Participation: I personally performed the entire procedure. Electronically signed by Rao Booth MD Rao Booth M.D. 01/30/2021 1:09:55 PM Number of Addenda: 0 Note Initiated On: 01/30/2021 12:32 PM Rao Booth MD ENDOSCOPY PROCEDURES Final R esult * Hepatitis C antibody (12/19/2020 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) Hep C Ab NONREACT NONREACTIVE [facility] Comment: Siemens CentaurXP using SIMON (chemiluminescent immunoassay) technology. NONREACTIVE: Antibodies to Hepatitis C not detected. This does not exclude early acute Hepatitis C infection, possibility of exposure to Hepatitis C, antibodies below detection limit, or to lack of antibody reactivity to the antigen used in this assay. EQUIVOCAL: Antibodies to Hepatitis C may or may not be present. Sample to be confirmed by real-time PCR method. REACTIVE: Antibodies to Hepatitis C detected.Sample to be confirmed by real-time PCR method. Blood specimen (specimen) 12/19/2020 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 12/19/2020 12:54 PM DRESSMAKER HELPER Narrative Resulting Agency Comment CLI us Yoana Amos MD LAB MICROBIOLOGY - GENERAL O RDERABLES Final Result Performing Organization Address City/State/[facility] Co de Phone Number [place] [id number] [address] [phone] * PAP SMEAR WITH HPV (11/11/2016) Pap smear Normal Historical Provider HEALTH MAINTENANCE Final Result from Last 3 Months or Most Recently Relevant to Health Maintenance Insurance [employer] Address: [address] [place] [id number] [employer] Advance Directives For more information, please contact: [phone] * Full Code (Latest Code Status on File) Date Activated Date Inactivated Comments 01/30/2021 11:16 AM 01/30/2021 6:06 PM Care Teams Aperture Mask Etcher Relationship Specialty Start Date End Date Yoana Amos MD [facility] [address] PCP - General Internal Medicine 11/28/19 Yoana Amos MD [address] [place] [id number] 11/28/19 Santiago Moe MD [address] [address] Referring Physician Obstetrics and Gynecology 05/11/19 Rao Booth MD [address] [address] Consulting Physician Colon and Rectal Surgery 10/08/20 Lyudmila Crowder MD [address] [address] Referring Physician Cardiology 11/19/21 Zack Hebert OD [address] [facility] [address] [place] [address] Optometry 12/26/21
--- OUTSIDE RECORDS SUMMARY | 2025-08-14 12:46 | XMS_ITS | Patient Health Record ---
Author Organization [facility] Address [address] [place], [place] [id number] Care Team Providers Care Probation Supervisor Name Role Phone HUI LITTLE Unavailable [phone] Yoana Esteves Unavailable Unavailable Reason For Referral No Information Social History Social History Additional Details Category Social Info Options Details Migrated Social History Migrated Social History History of tobacco use : Current every day smoker , Smoking Status : Current every day smoker Plan Of Treatment No Information Insurance Providers Payer Name Payer Address Payer Phone Subscriber Number Group Number Insured Name Patient Relationship to Insured Coverage Start Date Coverage End Date [employer] [address] [place] [phone] [id number] DIANA CROWE Self - patient is the insured
== END 2025-08-14 11:14 | disposition home or self-care (01) ==
LOC: ANHFOHIMG 11:14
PROVIDERS: Visit Provider Nurse Practitioner Family
DX: N63.22 Unspecified lump in the left breast, upper inner quadrant (principal)
CPT/HCPCS: 76642; 77062; 77066; G0279